=== PATIENT | female | born 2005 | race Caucasian/White ===

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

== ENCOUNTER 2024-12-25 20:52 | Emergency (ER) | payer OTHER, SELFPAY ==
[2024-12-25 20:58] VITALS: BP 155/96; PULSE 120; RESP 18; TEMP 37.6; O2SAT 97; BMI 31.9
[2024-12-25 21:24] LABS: MANUAL DIFF FLAG NO
[2024-12-25 21:26] LABS: Basophils Percent Auto 0.5 % (0-2); Eosinophils Absolute Auto 0.1 X10*3/uL (0.0-0.4); Hematocrit 38.5 % (37.0-47.0); Hemoglobin 13.6 g/dl (12.0-16.0); Imm Gran Abs Auto 0.02 X10*3/uL (0.00-0.03); Imm Gran Pct Auto 0.3 % (0.0-0.4); Lymphocytes Absolute Auto 1.5 X10*3/uL (1.2-4.9); Mean Corpuscular HGB Conc 35.3 g/dl (31.0-35.0); Mean Corpuscular Hemoglobin 31.4 pg (27.0-33.0); Mean Corpuscular Volume 88.9 fL (80.0-98.0); Mean Platelet Volume 9.1 fL (9.4-12.3); Monocytes Absolute Auto 0.3 X10*3/uL (0.1-1.2); Monocytes Percent Auto 5.3 % (2-11); Neutrophils Absolute Auto 3.9 x10*3/uL (2.0-8.3); Neutrophils Percent Auto 66.9 % (45-73); Platelet Count 223 X10*3/uL (160-400); Red Blood Count 4.33 X10*6/uL (4.20-5.50); Red Cell Distribution Width 11.2 % (11.0-16.0); White Blood Count 5.9 X10*3/uL (4.8-10.8)
[2024-12-25 21:33] LABS: Appearance Urine Clear; Color Urine Yellow; Glucose Urine UA Negative (Negative); Leukocyte Esterase Urine Negative (Negative); Nitrite Urine Negative (Negative); Specific Gravity - Urine <= 1.005 (1.005-1.025); Urine Blood Negative (Negative); Urine Ketones Negative (Negative); Urine Protein Negative (Neg-Trace)
[2024-12-25 21:37] LABS: UPreg QC Valid YES; Urine Pregnancy NEGATIVE (NEGATIVE)
[2024-12-25 21:46] LABS: Anion Gap 14 (12-20); Blood Urea Nitrogen 11 mg/dL (9-16); Calcium 10.2 mg/dL (8.4-10.2); Carbon Dioxide 25 mmol/L (22-29); Chloride 105 mmol/L (96-108); Creatinine Clr Calc Pharmacy 112.5; Estimated Glomerular Filt Rate > 60; Glucose Random 136 mg/dL (60-115); Potassium 4.1 mmol/L (3.3-5.1); Sodium 140 mmol/L (135-145)
[2024-12-25 23:44] VITALS: BP 136/92; PULSE 92; RESP 18; TEMP 36.9; O2SAT 98
--- NOTE | 2024-12-25 23:47 | PC.NURSE ---
Pt a&ox4, no signs distress. Pt denies pain at this time Pt reports she believes she suffered a panic attack, has had a similar episode Plan of care ongoing
--- NOTE | 2024-12-26 00:46 | ED.GENADULT ---
HPI - General Adult General Chief complaint: General Medical Stated complaint: left side rib pain Time Seen by Provider: 12/26/24 00:43 History of Present Illness HPI narrative: Patient is a 19-year-old female presents today with multiple complaints including having abdominal pain worse on the left side also question pain on urination also question bright red blood per rectum. Also complaining of a mild headache there is no fever no chills no focal weakness. No history of kidney stone patient is from home no chest pain or diaphoresis Related Data Previous Rx's ?Medication ?Instructions ?Recorded aripiprazole 10 mg tablet 10 mg PO DAILY 30 days #30 tabs 04/14/22 clonazepam 0.5 mg tablet 0.5 mg PO BID 30 days #60 tabs 04/14/22 Allergies Allergy/AdvReac Type Severity Reaction Status Date / Time No Known Allergies Allergy Verified 12/25/24 21:00 Review of Systems Review of Systems: Positive abdominal pain positive mild headache positive bright red blood per rectum Yes all other systems are reviewed and are negative [facility] Past Medical History Attestation statement: The following information was validated with the patient. Social History Social History Household Members: Family Household Members Other:: mother, father, sister Housing: House Do you presently have visiting nurse or other home services: No Alcohol intake: former Patient Tobacco Use Status: Former Tobacco user Smoked in Last 30 Days: No e-Cigarette/Vaping Use: Former Use Second Hand Smoke Exposure: No Use of substances other than those prescribed or required for medical reasons: No Substance Use Type: Marijuana Do you have a plan to hurt others: No Plan service: No Sexual orientation: Don't Know Physical Exam ED Vital Signs: Vital Signs - 24 hr 12/25/24 20:58 12/25/24 23:44 Temperature 99.7 F 98.4 F Pulse Rate 120 H 92 Respiratory Rate 18 18 Blood Pressure 155/96 H 136/92 H Pulse Oximetry 97 98 Oxygen Delivery Method Room Air Room Air BMI result Body Mass Index 31.9 Appearance: Alert. Oriented X3. No acute distress. Eyes: Pupils equal, round and reactive to light. ENT: Pharynx normal. Neck: Normal inspection. Neck supple. No lymph nodes noted. No crepitus CVS: Normal heart rate and rhythm. Pulses normal. Normal S1 and S2 Respiratory: No respiratory distress. Breath sounds normal. No Wheezing. No rales Abdomen: Soft and nontender. No rigidity. No distention. good BS x4 Skin: Skin warm and dry. Normal skin color. Normal skin turgor. Rectal exam was done with nurse Julissa present it showed brown stool Extremities: No lower extremity edema. Neurovascular intact to all extremities. No Lacerations. No Rash Neuro: Oriented X 3. No motor deficit. No sensory deficit. Moving all extermities. No slurred speech Medical Decision Making Medical Decision Making [facility] Narrative: Patient's abdominal pain is completely gone by the time I arrived. Her white count is normal. Her hemoglobin is 13.6 she complaining of bright red blood per rectum this is her baseline hemoglobin I did a rectal with the nurse present it showed brown stool. Patient is electrolytes unremarkable except for sugar that was slightly elevated at 130. Urine showed no evidence of infection patient's test was negative no related issue there is no blood in the urine to suggest patient has kidney stone or having hematuria. In no acute distress. Patient's abdominal pain is completely gone away repeat abdominal exam is soft nontender will discharge patient home. Differential Diagnosis Differential Diagnoses: The differential diagnosis associated with the presentation includes GI bleed, diverticulitis, kidney stone, UTI Admission/Observation Consideration of admission/observation: Escalation of care including admission/observation considered Lab Data [facility] Lab Attestation statement: I reviewed the patient's lab results. 12/25/24 21:18 12/25/24 21:18 Labs: Lab Results 12/25/24 12/25/24 Range/Units 21:17 21:18 WBC 5.9 (4.8-10.8) X10*3/uL RBC 4.33 (4.20-5.50) X10*6/uL Hgb 13.6 (12.0-16.0) g/dl Hct 38.5 (37.0-47.0) % MCV 88.9 (80.0-98.0) fL MCH 31.4 (27.0-33.0) pg MCHC 35.3 H (31.0-35.0) g/dl RDW 11.2 (11.0-16.0) % Plt Count 223 (160-400) X10*3/uL MPV 9.1 L (9.4-12.3) fL Immature Gran % (Auto) 0.3 (0.0-0.4) % Neut % (Auto) 66.9 (45-73) % Lymph % (Auto) 26.0 (20-40) % [place] % (Auto) 5.3 (2-11) % Eos % (Auto) 1.0 (0-4) % Baso % (Auto) 0.5 (0-2) % Lymph # (Auto) 1.5 (1.2-4.9) X10*3/uL [place] # (Auto) 0.3 (0.1-1.2) X10*3/uL Eos # (Auto) 0.1 (0.0-0.4) X10*3/uL Baso # (Auto) 0.0 (0.0-0.2) X10*3/uL Abs Immat Gran (auto) 0.02 (0.00-0.03) X10*3/uL Absolute Neuts (auto) 3.9 (2.0-8.3) x10*3/uL Absolute Nucleated RBC 0.000 (0.0-0.012) X10*3/uL Nucleated RBC % (auto) 0.0 (0.0-0.2) /100WBC Sodium 140 (135-145) mmol/L Potassium 4.1 (3.3-5.1) mmol/L Chloride 105 (96-108) mmol/L Carbon Dioxide 25 (22-29) mmol/L Anion Gap 14 (12-20) BUN 11 (9-16) mg/dL Creatinine 0.80 (0.5-1.4) mg/dL Estim Creat Clear Calc 112.5 Estimated GFR > 60 Random Glucose 136 H (60-115) mg/dL Calcium 10.2 (8.4-10.2) mg/dL Urine Color Yellow Urine Appearance Clear Urine pH 7.0 (5.0-9.0) Ur Specific [place] <= 1.005 (1.005-1.025) Urine Protein Negative (Neg-Trace) mg/dL Urine Glucose (UA) Negative (Negative) mg/dL Urine Ketones Negative (Negative) mg/dL Urine Blood Negative (Negative) Urine Nitrite Negative (Negative) Ur Leukocyte Esterase Negative (Negative) Urine Test NEGATIVE (NEGATIVE) Discharge Plan Discharge Clinical Impression: Abdominal pain Patient Disposition: Home, Self-Care Instructions: Abdominal Pain (ED) Prescriptions: No Action clonazepam 0.5 mg Tablet 0.5 mg PO BID 30 Days Qty: 60 0RF aripiprazole 10 mg Tablet 10 mg PO DAILY 30 Days Qty: 30 0RF Referrals: Physician,Unknown J [Primary Care Provider] - 12/28/24 Print Language: Maldivian
[2024-12-26 01:00] LABS: OBS Int Ctl Valid YES; OBS1 NEGATIVE (NEGATIVE)
[2024-12-26 01:31] VITALS: BP 136/82; PULSE 68; RESP 12; TEMP 36.8; O2SAT 97
[2024-12-26 01:32] VITALS: BP 136/82; PULSE 68; RESP 12; TEMP 36.8; O2SAT 97
== END 2024-12-26 01:32 | disposition home or self-care (01) ==
PROVIDERS: Emergency Provider Emergency Medicine Emergency Medical Services
DX: R07.81 Pleurodynia (principal); R30.0 Dysuria; R10.2 Pelvic and perineal pain; Z87.891 Personal history of nicotine dependence; Z79.899 Other long term (current) drug therapy
CPT/HCPCS: 36415; 80048; 81003; 81025; 82272; 85025; 99283; 99284

== ENCOUNTER 2025-02-06 07:43 | Inpatient (IN) | payer OTHER, SELFPAY ==
[2025-02-06 07:50] VITALS: BP 149/87; PULSE 85; RESP 18; TEMP 36.6; O2SAT 97; BMI 31.9
--- NOTE | 2025-02-06 07:59 | ED_ITS ---
HPI - General Adult General Chief complaint: General Medical Stated complaint: SOB, abd pain, insomnia Time Seen by Provider: 02/06/25 07:58 Source: patient and family (patient's mother) Mode of arrival: ambulatory Limitations: no limitations History of Present Illness ED Provider: Idalia Mcdonough PA-C HPI narrative: Patient is a 20 year old assigned female at with a history of mental health issues presenting to the emergency department today with increased stress, headache, and abdominal pain. Patient states that she has been very stressed out and is concerned she is going to be in a full crisis . Patient states that she is having abdominal pain and head pressure with difficulty sleeping. Patient denies any dizziness, lightheadedness, nausea, vomiting, fever, chills, blurry vision, double vision, loss of vision, chest pain, difficulty breathing, shortness of breath, back pain, night sweats, pain with urination, increased urinary frequency, increased urinary urgency, blood in her urine or stool, syncope or a near syncopal episode, recent trauma or falls, bowel incontinence, bladder incontinence, or any other complaints at this time. Onset (ago): day(s) Relieving factors: none Exacerbating factors: none Associated symptoms: denies other symptoms Related Data Home Medications ?Medication ?Instructions ?Recorded ?Confirmed No Known Home Meds 02/07/25 02/07/25 Allergies Allergy/AdvReac Type Severity Reaction Status Date / Time No Known Allergies Allergy Verified 02/06/25 07:55 Review of Systems 2 Constitutional: Constitutional: Reports no additional constitutional complaints, Denies chills, Denies fever(s), Reports headache(s) and Denies night sweats Eyes: Eyes: Reports no additional eye complaints, Denies blurry vision, Denies change in vision, Denies diplopia, Denies eye discharge, Denies loss of vision and Denies eye pain ENT: Denies dizziness and Reports headache(s) Cardiovascular: Cardiovascular: Reports no additional cardiovascular complaints, Denies chest pain, Denies lightheadedness, Denies Loss of Consciousness and Denies dyspnea Respiratory: Respiratory: Reports no additional respiratory complaints and Denies dyspnea Gastrointestinal: Gastrointestinal: Reports no additional gastrointestinal complaints, Reports abdominal pain, Denies melena, Denies hematochezia, Denies change in bowel habits and Denies change in stool character Genitourinary: Genitourinary: Denies hematuria, Denies urinary frequency, Denies dysuria, Denies urinary incontinence, Denies urinary hesitancy and Denies urinary urgency Musculoskeletal: Musculoskeletal: Reports no additional musculoskeletal complaints, Denies numbness and Denies tingling Neurologic: Denies dizziness, Reports headache(s), Denies loss of vision, Denies numbness and Denies tingling Psychiatric: Psychiatric: Reports abnormal sleep pattern, Denies homicidal ideation and Denies suicidal ideation Endocrine: Endocrine: Reports no additional endocrine complaints Hematologic/Lymphatic: Hematologic/Lymphatic: Reports no additional hematologic/lymphatic complaints Allergic/Immunologic: Allergic/Immunologic: Reports no additional allergic/immunologic complaints PMFSH Past Medical History Attestation statement: The following information was validated with the patient. (all information validated with the patient's mother) Source: old records reviewed, obtained from family (patient's mother provided additional history and confirmed the history provided by the patient.) and nursing notes reviewed Social History Social History Household Members: Family Household Members Other:: mother, father, sister Housing: House Do you presently have visiting nurse or other home services: No Alcohol intake: current Alcohol intake frequency: holidays/special occasions only Patient Tobacco Use Status: Former Tobacco user Smoked in Last 30 Days: No e-Cigarette/Vaping Use: Former Use Second Hand Smoke Exposure: No Substance Use Type: Marijuana Advance Directives: No Advance Directives Information Provided: Yes Do you have a plan to hurt others: No Plan Patient : No service: No Sexual orientation: Don't Know Physical Exam ED Vital Signs: Vital Signs - 24 hr 02/06/25 21:11 02/07/25 08:45 Temperature 98.1 F 97.2 F Pulse Rate 92 89 Respiratory Rate 20 16 Blood Pressure 131/72 113/66 Pulse Oximetry 98 99 Oxygen Delivery Method Room Air Room Air BMI result Body Mass Index 31.9 Const General: cooperative, no acute distress, alert and awake Nutritional Appearance: well nourished Orientation/consciousness: patient oriented x3 HENMT Head: Yes normal to inspection and Yes atraumatic Ears: hearing grossly normal bilaterally and external ears normal General nose exam: Normal external nose present, no nasal discharge noted and no epistaxis Face and sinus: Yes normal facial exam, No abrasion and No laceration Mouth: Normal oral and palatal mucosa present, no drooling and no muffled voice Eyes General: appearance normal, both eyes and all related structures Periorbital: periorbital findings normal Eyelids: Yes eyelids normal Conjunctivae: conjunctivae normal Pupils: Equal, round and reactive pupils present EOM: EOMs intact bilaterally Neck Neck: Yes normal visual inspection, Yes full ROM and Yes no lymphadenopathy Resp Effort & Inspection: normal respiratory effort and able to speak in complete sentences Neuro General: patient oriented x3, moves all extremities and CN's II-XI intact bilaterally Cranial nerves: Yes Equal, round and reactive pupils present Cognition (Neuro): normal cognition Extrem General: Yes normal to inspection, Yes full ROM and Yes capillary refill normal Psych Appearance: grossly normal Mental Status: mental status grossly normal Affect: Sad affect present Attitude: cooperative Thought process: Normal thought process present Medications Administered Discontinued Medications Generic Name Dose Route Start Last Admin Trade Name Freq PRN Reason Stop Dose Admin Acetaminophen 975 mg 02/07/25 01:16 02/07/25 01:26 Acetaminophen 325 Mg Tablet PO 02/07/25 01:17 975 mg ONCE ONE Administration Sucralfate 1 gm 02/07/25 01:33 02/07/25 01:40 Sucralfate Oral Suspension 1 Gm/10 Ml Oral.Susp PO 02/07/25 01:34 1 gm ONCE ONE Administration Medical Decision Making Medical Decision Making [facility] Narrative: Patient is a 20 year old assigned female at with a history of mental health issues presenting to the emergency department today with increased stress, headache, and abdominal pain. Patient's physical exam was as noted in the physical exam portion of this note. Patient's blood work was unremarkable. Patient's urine showed no acute process. Patient was evaluated by the CARE team who recommended the patient be an inpatient level of psychiatry bed search. I explained my physical exam findings as well as all test results to the patient. I answered all questions asked by the patient. Patient verbalized agreement and understanding with this treatment plan and remaining in the department pending either admission here to [facility] [place] psychiatric care or transfer to an appropriate facility with psychiatric inpatient level of care. Differential Diagnosis Differential Diagnoses: The differential diagnosis associated with the presentation includes Stress Depression Admission/Observation Consideration of admission/observation: Escalation of care including admission/observation considered Patient will either be admitted here at [facility] for inpatient level of psychiatric care or transferred to a facility with he appropriate psychiatric inpatient facilities. Consult Healthcare Provider Management of the patient was discussed with: Behavioral Health Provider (Spoke with the CARE team as noted in the MDM Rationale portion of this note. ) Lab Data [facility] Lab Attestation statement: I reviewed the patient's lab results. My interpretation of these results are in the MDM Rationale portion of this note. 02/06/25 08:48 02/06/25 09:37 Labs: Lab Results 02/06/25 02/06/25 02/06/25 Range/Units 08:48 08:49 09:37 WBC 6.8 (4.8-10.8) X10*3/uL RBC 4.27 (4.20-5.50) X10*6/uL Hgb 13.3 (12.0-16.0) g/dl Hct 38.7 (37.0-47.0) % MCV 90.6 (80.0-98.0) fL MCH 31.1 (27.0-33.0) pg MCHC 34.4 (31.0-35.0) g/dl RDW 11.5 (11.0-16.0) % Plt Count 164 D (160-400) X10*3/uL MPV 9.4 (9.4-12.3) fL Immature Gran % (Auto) 0.3 (0.0-0.4) % Neut % (Auto) 67.7 (45-73) % Lymph % (Auto) 24.9 (20-40) % [place] % (Auto) 6.0 (2-11) % Eos % (Auto) 0.7 (0-4) % Baso % (Auto) 0.4 (0-2) % Lymph # (Auto) 1.7 (1.2-4.9) X10*3/uL [place] # (Auto) 0.4 (0.1-1.2) X10*3/uL Eos # (Auto) 0.1 (0.0-0.4) X10*3/uL Baso # (Auto) 0.0 (0.0-0.2) X10*3/uL Abs Immat Gran (auto) 0.02 (0.00-0.03) X10*3/uL Absolute Neuts (auto) 4.6 (2.0-8.3) x10*3/uL Absolute Nucleated RBC 0.000 (0.0-0.012) X10*3/uL Nucleated RBC % (auto) 0.0 (0.0-0.2) /100WBC Sodium 142 (135-145) mmol/L Potassium 4.0 (3.3-5.1) mmol/L Chloride 106 (96-108) mmol/L Carbon Dioxide 27 (22-29) mmol/L Anion Gap 13 (12-20) BUN 9 (9-16) mg/dL Creatinine 0.67 (0.5-1.4) mg/dL Estim Creat Clear Calc 133.2 Estimated GFR > 60 Random Glucose 101 (60-115) mg/dL Calcium 10.0 (8.4-10.2) mg/dL Magnesium 1.8 (1.6-2.6) mg/dL Total Bilirubin 0.4 (0.0-1.0) mg/dL AST 21 (5-31) U/L ALT 22 (0-31) U/L Alkaline Phosphatase 98 (39-117) U/L Total Protein 8.1 H (6.5-8.0) g/dL Albumin 4.7 (3.5-5.0) g/dL Beta HCG, Quant < 2 mIU/mL Urine Color Yellow Urine Appearance Clear Urine pH 6.5 (5.0-9.0) Ur Specific [place] 1.020 (1.005-1.025) Urine Protein Negative (Neg-Trace) mg/dL Urine Glucose (UA) Negative (Negative) mg/dL Urine Ketones Negative (Negative) mg/dL Urine Blood Negative (Negative) Urine Nitrite Negative (Negative) Ur Leukocyte Esterase Negative (Negative) Urine Opiates Screen Not Detected (Not Detect) Ur Buprenorphine Scrn Not Detected (Not Detect) ng/mL Ur Oxycodone Screen Not Detected (Not Detect) ng/mL Urine Methadone Screen Not Detected (Not Detect) ng/mL Urine Fentanyl Screen Not Detected (Not Detect) Ur Barbiturates Screen Not Detected (Not Detect) Ur Phencyclidine Scrn Not Detected (Not Detect) Ur Amphetamines Screen Not Detected (Not Detect) U Benzodiazepines Scrn Not Detected (Not Detect) Urine Cocaine Screen Not Detected (Not Detect) U Marijuana (THC) Screen Not Detected (Not Detect) Influenza Type A (PCR) NEGATIVE (Negative) Influenza Type B (PCR) NEGATIVE (Negative) RSV RNA Qual (PCR) NEGATIVE (Negative) SARS-CoV-2 RNA (RT-PCR) NEGATIVE (Negative) Independent Historian Clinical information obtained from an independent historian. History obtained from or confirmed by: Parent (Patient's mother provided additional history and confirmed the history provided by the patient. ) Critical Care Time Critical Care Time Critical Care Time: Yes Total Critical Care Time: 37 Attestation: I spent 37 minutes of Critical Care Time with this patient. This does not include time spent on separately reported billable procedures. Discharge Plan Discharge Clinical Impression: Depression Patient Disposition: Admitted As Inpatient Print Language: Sami
[2025-02-06 08:54] LABS: MANUAL DIFF FLAG NO
[2025-02-06 08:59] LABS: Basophils Percent Auto 0.4 % (0-2); Eosinophils Absolute Auto 0.1 X10*3/uL (0.0-0.4); Eosinophils Percent Auto 0.7 % (0-4); Hematocrit 38.7 % (37.0-47.0); Hemoglobin 13.3 g/dl (12.0-16.0); Imm Gran Abs Auto 0.02 X10*3/uL (0.00-0.03); Imm Gran Pct Auto 0.3 % (0.0-0.4); Lymphocytes Absolute Auto 1.7 X10*3/uL (1.2-4.9); Lymphocytes Percent Auto 24.9 % (20-40); Mean Corpuscular HGB Conc 34.4 g/dl (31.0-35.0); Mean Corpuscular Hemoglobin 31.1 pg (27.0-33.0); Mean Corpuscular Volume 90.6 fL (80.0-98.0); Mean Platelet Volume 9.4 fL (9.4-12.3); Monocytes Absolute Auto 0.4 X10*3/uL (0.1-1.2); Neutrophils Absolute Auto 4.6 x10*3/uL (2.0-8.3); Neutrophils Percent Auto 67.7 % (45-73); Platelet Count 164 X10*3/uL (160-400); Red Blood Count 4.27 X10*6/uL (4.20-5.50); Red Cell Distribution Width 11.5 % (11.0-16.0); White Blood Count 6.8 X10*3/uL (4.8-10.8)
[2025-02-06 09:01] LABS: Appearance Urine Clear; Color Urine Yellow; Glucose Urine UA Negative (Negative); Leukocyte Esterase Urine Negative (Negative); Nitrite Urine Negative (Negative); PH 6.5 (5.0-9.0); Urine Blood Negative (Negative); Urine Ketones Negative (Negative); Urine Protein Negative (Neg-Trace)
[2025-02-06 09:32] LABS: Influenza A PCR NEGATIVE (Negative); Influenza B PCR NEGATIVE (Negative); Resp Syncy Virus RNA Qual PCR NEGATIVE (Negative); SARS COV2 PCR INHOUSE NEGATIVE (Negative)
[2025-02-06 10:04] LABS: Alanine Aminotransferase 22 U/L (0-31); Albumin Level 4.7 g/dL (3.5-5.0); Alkaline Phosphatase 98 U/L (39-117); Anion Gap 13 (12-20); Aspartate Amino Transferase 21 U/L (5-31); Bilirubin Total 0.4 mg/dL (0.0-1.0); Blood Urea Nitrogen 9 mg/dL (9-16); Carbon Dioxide 27 mmol/L (22-29); Chloride 106 mmol/L (96-108); Creatinine Clr Calc Pharmacy 133.2; Estimated Glomerular Filt Rate > 60; Glucose Random 101 mg/dL (60-115); Magnesium 1.8 mg/dL (1.6-2.6); Sodium 142 mmol/L (135-145); Total Protein 8.1 g/dL (6.5-8.0)
[2025-02-06 10:14] LABS: HCG Quantitative < 2 mIU/mL
[2025-02-06 10:35] LABS: Amphetamine Screen Urine Not Detected (Not Detect); Barbiturates, Urine Not Detected (Not Detect); Benzodiazepines Screen Urine Not Detected (Not Detect); Buprenorphine Scr Not Detected (Not Detect); Cannabinoid Screen Urine Not Detected (Not Detect); Cocaine Screen Urine Not Detected (Not Detect); Fentanyl, urine Not Detected (Not Detect); Methadone Screen, Urine Not Detected (Not Detect); Opiate Screen Urine Not Detected (Not Detect); Oxycodone Screen Urine Not Detected (Not Detect); Phencyclidine Screen Urine Not Detected (Not Detect)
[2025-02-06 10:46] VITALS: BP 108/65; PULSE 76; RESP 16; O2SAT 97
--- NOTE | 2025-02-06 13:04 | MHC.CARE ---
Patient evaluated by the CARE Team, disposition determined to be inpatient psychiatric treatment. ED Provider, RIAN Silverio updated.
[2025-02-06 13:22] VITALS: BP 117/78; PULSE 87; RESP 16; O2SAT 97
--- NOTE | 2025-02-06 13:40 | PC.NURSE ---
Patient is a 20 year old with a history of mental health issues presenting to the emergency department today with increased stress. History of anxiety and psychosis. Was evaluated by the care team and determined to need IPLOC. Mother at the bedside. Patient sad and crying. States does not take any medication at this time. Respirations even and non-labored. Anxiety medication offered and declined at this time. Pending IPLOC
[2025-02-06 21:11] VITALS: BP 131/72; PULSE 92; RESP 20; TEMP 36.7; O2SAT 98
[2025-02-07] MEDS: Acetaminophen 325 MG TABLET 975 MG PO (01:26)
--- NOTE | 2025-02-07 01:33 | PC.NURSE ---
Addendum entered by Roselyn Beatty 02/07/25 01:37: also offered pt food/drinks, declined at this time. Addendum entered by Roselyn Beatty 02/07/25 01:36: LUQ ABD Original Note: pt approached nurses station stated she feels not well. asked pt questions to try to understand more of sx, pt became tearful and only requested tylenol, made aware and pt medicated per nov. while medicating pt stated she's unsure if she is nauseous, feels bubbling pointing to LEILA abd. pt is calm, resting in bed in 8. made aware of sx and came to bedside to assess. states will try po liquid carafate. pt agreeable.
[2025-02-07] MEDS: Sucralfate Oral Suspension 1 GM/10 ML ORAL.SUSP PO (01:40)
--- NOTE | 2025-02-07 08:33 | PC.NURSE ---
Assumed care of patient at 0645, patient appears to be in no apparent distress, sitting on couch watching TV in bh 8, offering no complaints to this RN. Continue plan of care for IPLOC
[2025-02-07 08:45] VITALS: BP 113/66; PULSE 89; RESP 16; TEMP 36.2; O2SAT 99
--- NOTE | 2025-02-07 10:03 | PHA.MEDREC ---
Addendum entered by Shelton Castillo PharmD 02/07/25 10:06: reviewed Original Note: Pharmacy Consult ? Medication Reconciliation Pharmacy has reviewed the medication reconciliation done by nursing.
--- NOTE | 2025-02-07 15:26 | PC.ADMIT ---
Addendum entered by Bia Alan RN 02/07/25 15:59: PER ED BELONGINGS LIST: ALL BELONGINGS SENT HOME WITH MOM. PT CAME TO UNIT IN [facility], NO BELONGINGS. Original Note: Pt admitted at 1355 from [facility] ED. Pt initially presented to [facility] ED with vague somatic complaints- headache and abdominal pains. Pt was not able to provide much info to Care team or t/w, much of the info comes from pt's parents. Per crisis report pt has been presently frequently to [facility] EDs with somatic complaints. Pt has worked the same job for several years and quit last month for no clear reason. Pt has been paranoid and not sleeping well. Pt denies this part of assessment. Pt asked that parents give away the family dogs as she no longer felt safe with them at home (mom says these are well behaved, long time residents of the home, not new pets). Pt presented with significant thought blocking and did appear to be responding to internal stimuli on the ride up from the ED. Pt unable to verbalize to t/w what brought her to the ED, whether physical or verbal and just shrugged as a result of questions. Per crisis report pt did give to a stillborn child in July 2023. Pt reported the baby was 4months old, mom reported 7 months old. This was not discussed with pt during admission. Pt declines to sign any paperwork other than a CV and TAMARA for parents. Pt declined to participate in safety tool. Skin check unremarkable.
[2025-02-07 19:53] VITALS: BP 124/75; PULSE 85; RESP 16; TEMP 37; O2SAT 97
[2025-02-08 07:00] VITALS: BMI 32.0
[2025-02-08 08:00] VITALS: BP 114/56; PULSE 80; RESP 16; TEMP 36.9
[2025-02-08 08:38] LABS: Estimated Average Glucose 100 mg/dL; Hemoglobin A1C 108.2127 umol/L; Hemoglobin A1c % 5.1 % (<6.0); Total Hemoglobin (HGBA1C) 3360.5399 umol/L
[2025-02-08 08:53] LABS: Alanine Aminotransferase 16 U/L (0-31); Albumin Level 4.7 g/dL (3.5-5.0); Alkaline Phosphatase 93 U/L (39-117); Anion Gap 11 (12-20); Aspartate Amino Transferase 18 U/L (5-31); Bilirubin Total 0.5 mg/dL (0.0-1.0); Blood Urea Nitrogen 16 mg/dL (9-16); Calcium 10.1 mg/dL (8.4-10.2); Carbon Dioxide 29 mmol/L (22-29); Chloride 103 mmol/L (96-108); Cholesterol 202 mg/dL (<200); Creatinine Clr Calc Pharmacy 115.9; Estimated Glomerular Filt Rate > 60; Glucose Random 95 mg/dL (60-115); HDL Cholesterol 50 mg/dL (>40); LDL Cholesterol Calculated 118 mg/dL (<100); Potassium 3.9 mmol/L (3.3-5.1); Sodium 139 mmol/L (135-145); Triglycerides 172 mg/dL (<150)
[2025-02-08 09:02] LABS: TSH reflex Free T4 1.38 uIU/mL (0.32-4.0)
--- NOTE | 2025-02-08 09:56 | HO.PSYADMNOT ---
HPI Date of Service: 02/08/25 Chief Complaint: Severe anxiety/SI Sources of Information: patient interviewed, chart reviewed and crisis/core team assessment reviewed HPI Subjective Notes: Mathew Warning, Conditional Voluntary and 3 Day Narrative: pt seen on 02/07/25 Patient is a 20-year-old female history of anxiety and depression, 1 past psychiatric admission at [facility] in 2021, who presents for odd behaviors at home. Patient is quite reticent on meeting. She says she was brought to the hospital since there was pain in my body...kind of like constipation... pain is gone now. Patient says some odd things that are incongruent with questions such as i like to go outside and play... She acknowledges that she is having a lot of anxiety. Patient used to work at [employer] for 2 years, family saying she abruptly quit. On inquiry she says she stopped since it didn't feel normal...the environment...i would see the same people every day...i'd wake up and feel i didn't want to go to work...i don't hate people so it' was unusual that i wouldn't want to go to work...I was having panic attacks...I was scared to get sick, like a disease or an infection..or not be able to perfom my job... Her mother reported that she asked to have the family dogs given away. 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 Patient says she's confused about it...She endorses anxiety and depression but patient can't seem to articulate details. She denies hearing voices but intermittently will hear 1 type of auditory hallucination and says she hears a popping sounds that pops once..., when i feel like i'm going to start crying.. Patient agrees that over the past several months something has changed. On deeper inquiry, patient acknowledges that in 2022 she was and had a stillborn child. Since then she feels that something has changed and life has been more difficult. She also reports having nightmares frequently however denies any other trauma. Patient mentions that she does not have a doctor and that she has had vaginal pain which she would like addressed. Patient denies any manic type symptoms or behaviors. Denies any SI; no drug or alcohol use Family provided collateral and reports: vague somatic complaints- headache and abdominal pains. presently frequently to area EDs with somatic complaints. Pt has worked the same job for several years and quit last month for no clear reason. Pt has been paranoid and not sleeping well. Pt asked that parents give away the family dogs as she no longer felt safe with them at home . Past Psychiatric History: Psych admission 2021 at [facility] History of SI expressed at last admission; no h/o SA. trial of Abilify Medical Evaluation Reviewed: Yes [facility] Family History: father has mental health history, not defined Social History: born in [place], lives in [place] [facility]. graduate of [employer] and looking into college options. Substance History: None Trauma History: Had a stillborn child; partner was a friend Diagnostics Vital Signs (24Hr): Vital Signs - 24 hr 02/07/25 19:53 Temperature 98.6 F Pulse Rate 85 Respiratory Rate 16 Blood Pressure 124/75 Pulse Oximetry 97 Oxygen Delivery Method Room Air BMI result Body Mass Index 31.9 Labs 02/06/25 08:48 02/08/25 08:16 Labs: Laboratory Results - last 48 hr 02/06/25 02/06/25 02/08/25 08:49 09:37 08:16 Sodium 142 139 Potassium 4.0 3.9 Chloride 106 103 Carbon Dioxide 27 29 Anion Gap 13 11 L BUN 9 16 Creatinine 0.67 0.77 Estim Creat Clear Calc 133.2 115.9 Estimated GFR > 60 > 60 Random Glucose 101 95 Estimat Average Glucose 100 Hemoglobin A1c % 5.1 Calcium 10.0 10.1 Magnesium 1.8 Total Bilirubin 0.4 0.5 AST 21 18 ALT 22 16 Alkaline Phosphatase 98 93 Total Protein 8.1 H 8.0 Albumin 4.7 4.7 Triglycerides 172 H Cholesterol 202 H LDL Cholesterol, Calc 118 H HDL Cholesterol 50 TSH 1.38 Beta HCG, Quant < 2 Urine Opiates Screen Not Detected Ur Buprenorphine Scrn Not Detected Ur Oxycodone Screen Not Detected Urine Methadone Screen Not Detected Urine Fentanyl Screen Not Detected Ur Barbiturates Screen Not Detected Ur Phencyclidine Scrn Not Detected Ur Amphetamines Screen Not Detected U Benzodiazepines Scrn Not Detected Urine Cocaine Screen Not Detected U Marijuana (THC) Screen Not Detected Meds/Allergies Meds Home Medications ?Medication ?Instructions ?Recorded ?Confirmed ?Type No Known Home Meds 02/07/25 02/07/25 History Allergies Allergies Allergy/AdvReac Type Severity Reaction Status Date / Time No Known Allergies Allergy Verified 02/06/25 07:55 Mental Status Exam Mental Status Exam Narrative: Pt is alert and oriented; behavior is quiet, guarded, reticent; dressed in casual attire with unkempt hair but adequate hygiene; mood is described as anxious and affect congruent; eye contact appropriate; Speech quiet, latent; psychomotor retardation present; thought process is distracted; Thought content is on somatic complaints; unclear if patient has delusional thoughts; denies any SI/HI. Denies AVH however seems internally preoccupied. Patients insight and judgment impaired Assessment & Plan Assessment & Plan (1) Anxiety: Status: Resolved Code(s): F41.9 - Anxiety disorder, unspecified Plan Patient is a 20-year-old female with no known psych history who presents for odd behaviors at home. Patient is quite reticent on meeting. She says she was brought to the hospital since there was pain in my body...kind of like constipation... pain is gone now. Patient says some odd things that are incongruent with questions such as i like to go outside and play... She acknowledges that she is having a lot of anxiety. Patient used to work at [employer] for 2 years, family saying she abruptly quit. On inquiry she says she stopped since it didn't feel normal...the environment...i would see the same people every day...i'd wake up and feel i didn't want to go to work...i don't hate people so it' was unusual that i wouldn't want to go to work...I was having panic attacks...I was scared to get sick, like a disease or an infection..or not be able to perfom my job... Her mother reported that she asked to have the family dogs given away. 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 Patient says she's confused about it...She endorses anxiety and depression but patient can't seem to articulate details. She denies hearing voices but intermittently will hear 1 type of auditory hallucination and says she hears a popping sounds that pops once..., when i feel like i'm going to start crying.. Patient agrees that over the past several months something has changed. On deeper inquiry, patient acknowledges that in 2022 she was and had a stillborn child. Since then she feels that something has changed and life has been more difficult. She also reports having nightmares frequently however denies any other trauma. Patient mentions that she does not have a doctor and that she has had vaginal pain which she would like addressed. Patient denies any manic type symptoms or behaviors. Denies any SI at all, past or present; no drug or alcohol use Family provided collateral and reports: vague somatic complaints- headache and abdominal pains;' presently frequently to area EDs with somatic complaints. Pt has worked the same job for several years and quit last month for no clear reason. Pt has been paranoid and not sleeping well.Pt asked that parents give away the family dogs as she no longer felt safe with them at home Formulation/clinical reasoning: Difficult to tell if patient's symptoms are due to just anxiety or also psychosis. Will continue to monitor. For now will start on Ativan Plan: CV Q 15 minute checks Start Ativan 1 mg t.i.d. Patient educated on: diagnosis, medication risk/benefits and therapeutic strategies Informed Consent: understands, does not understand and further education needed Reason for continued inpatient stay Substantial Risk for: rapid decompensation Statement Statement: I have reviewed the history and physical and performed a pertinent examination on my patient. No changes have occurred unless specified. If the History and Physical was not performed prior to admission, the Hospitalist's service will be consulted for completing the admission physical. Time Spent With Patient Time: Total time managing care of this patient today ____ minutes.
[2025-02-08] MEDS: LORazepam 1 MG TABLET PO ×2 (14:42→21:41)
[2025-02-08 20:00] VITALS: BP 123/64; PULSE 89; RESP 18; TEMP 36.8; O2SAT 96
[2025-02-08] MEDS: Acetaminophen 325 MG TABLET 650 MG PO (21:43)
[2025-02-09 09:02] VITALS: BP 114/62; PULSE 85; RESP 16; TEMP 36.2; O2SAT 96
[2025-02-09] MEDS: LORazepam 1 MG TABLET PO ×2 (09:38→15:54)
--- NOTE | 2025-02-09 09:48 | P.PNPSI_ITS ---
Subjective Subjective Date of Service: 02/09/25 Reason For Visit: Severe anxiety/SI Interim History: Met with patient; discussed with team Patient seems to be doing much better. Much more engaged and talking spontaneously; also much more organized in both speech and behavior. Patient says she is slept well and no nightmares. She says she does feel more relaxed. Mental Status Exam Mental Status Exam Narrative: Pt is alert and oriented; behavior is quiet, guarded, reticent; dressed in casual attire with unkempt hair but adequate hygiene; mood is described as anxious and affect congruent; eye contact appropriate; Speech quiet, latent; psychomotor retardation present; thought process is distracted; Thought content is on somatic complaints; unclear if patient has delusional thoughts; denies any SI/HI. Denies AVH however seems internally preoccupied. Patients insight and judgment impaired Diagnostics Vital Signs (24Hr): Vital Signs - 24 hr 02/08/25 20:00 02/09/25 09:02 Temperature 98.2 F 97.2 F Pulse Rate 89 85 Respiratory Rate 18 16 Blood Pressure 123/64 114/62 Pulse Oximetry 96 96 Oxygen Delivery Method Room Air Room Air BMI result Body Mass Index 32.0 Labs 02/06/25 08:48 02/08/25 08:16 Labs: Laboratory Results - last 48 hr 02/08/25 08:16 Sodium 139 Potassium 3.9 Chloride 103 Carbon Dioxide 29 Anion Gap 11 L BUN 16 Creatinine 0.77 Estim Creat Clear Calc 115.9 Estimated GFR > 60 Random Glucose 95 Estimat Average Glucose 100 Hemoglobin A1c % 5.1 Calcium 10.1 Total Bilirubin 0.5 AST 18 ALT 16 Alkaline Phosphatase 93 Total Protein 8.0 Albumin 4.7 Triglycerides 172 H Cholesterol 202 H LDL Cholesterol, Calc 118 H HDL Cholesterol 50 TSH 1.38 Medications Medications Current Medications Acetaminophen (Acetaminophen 325 Mg Tablet) 650 mg PO Q6H PRN PRN Reason: Headache/Pain, Scale 1-10 Last Admin: 02/08/25 21:43 Dose: 650 mg Al Hydroxide/Mg Hydroxide (Magnesium Hydrox/Alum Hydrox 30 Ml Oral.Susp) 30 ml PO Q6H PRN PRN Reason: Heartburn/Nausea Hydroxyzine HCl (Hydroxyzine Hcl 25 Mg Tablet) 25 mg PO Q6H PRN PRN Reason: mild anxiety Lorazepam (Lorazepam 1 Mg Tablet) 1 mg PO TID [facility] Last Admin: 02/09/25 09:38 Dose: 1 mg Magnesium Hydroxide (Milk Of Magnesia 30 Ml Oral.Susp) 30 ml PO DAILY PRN PRN Reason: Constipation Nicotine (Nicotine 21 Mg Patch.Td24) 21 mg TRANSDERMA DAILY PRN PRN Reason: smoking cessation Nicotine Polacrilex (Nicotine Polacrilex 2 Mg Gum) 4 mg BUCCAL Q2H PRN PRN Reason: Nicotine Cravings Olanzapine (Olanzapine 5 Mg Tablet) 5 mg PO TID PRN PRN Reason: agitation Trazodone HCl (Trazodone Hcl 50 Mg Tablet) 50 mg PO BEDTIME MRX1 PRN PRN Reason: Insomnia Allergies Allergies Allergy/AdvReac Type Severity Reaction Status Date / Time No Known Allergies Allergy Verified 02/06/25 07:55 Assessment & Plan Assessment & Plan (1) Anxiety: Status: Resolved Code(s): F41.9 - Anxiety disorder, unspecified Plan Patient is a 20-year-old female with no known psych history who presents for odd behaviors at home. Patient is quite reticent on meeting. She says she was brought to the hospital since there was pain in my body...kind of like constipation... pain is gone now. Patient says some odd things that are incongruent with questions such as i like to go outside and play... She acknowledges that she is having a lot of anxiety. Patient used to work at [employer] for 2 years, family saying she abruptly quit. On inquiry she says she stopped since it didn't feel normal...the environment...i would see the same people every day...i'd wake up and feel i didn't want to go to work...i don't hate people so it' was unusual that i wouldn't want to go to work...I was having panic attacks...I was scared to get sick, like a disease or an infection..or not be able to perfom my job... Her mother reported that she asked to have the family dogs given away. 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 Patient says she's confused about it...She endorses anxiety and depression but patient can't seem to articulate details. She denies hearing voices but intermittently will hear 1 type of auditory hallucination and says she hears a popping sounds that pops once..., when i feel like i'm going to start crying.. Patient agrees that over the past several months something has changed. On deeper inquiry, patient acknowledges that in 2022 she was and had a stillborn child. Since then she feels that something has changed and life has been more difficult. She also reports having nightmares frequently however denies any other trauma. Patient mentions that she does not have a doctor and that she has had vaginal pain which she would like addressed. Patient denies any manic type symptoms or behaviors. Denies any SI at all, past or present; no drug or alcohol use Family provided collateral and reports: vague somatic complaints- headache and abdominal pains;' presently frequently to area EDs with somatic complaints. Pt has worked the same job for several years and quit last month for no clear reason. Pt has been paranoid and not sleeping well.Pt asked that parents give away the family dogs as she no longer felt safe with them at home Formulation/clinical reasoning: Difficult to tell if patient's symptoms are due to just anxiety or also psychosis. Will continue to monitor. For now will start on Ativan -patient was started on Abilify last admission Hospital course: 02/09 patient doing much better, Ativan having seem to loosen her up. Now she is organized in speech and behavior and talking more spontaneously. At this point she does not seem to have psychotic symptoms though at last admission she was started on Abilify. Will try her on a course of an SSRI, venlafaxine (reviewed risks/side effects with patient) to address what seems to be severe anxiety and possibly OCD (and perhaps PTSD from of stillborn child). -no somatic complaints -no psychotic symptoms -at this point will just treat for anxiety/depression Plan: CV Q 15 minute checks Will switch to clonazepam 0.5 mg b.i.d. Will start venlafaxine Patient educated on: diagnosis, medication risk/benefits and therapeutic strategies Informed Consent: understands and further education needed Reason for continued inpatient stay Substantial Risk for: rapid decompensation Time Spent With Patient Time: Total time managing care of this patient today ____ minutes.
[2025-02-09 19:57] VITALS: BP 128/68; PULSE 81; RESP 16; TEMP 37.3; O2SAT 97
[2025-02-09] MEDS: cloNIDine HCL 0.1 MG TABLET PO (20:24)
[2025-02-10 08:15] VITALS: BP 107/72; PULSE 83; TEMP 36.4; O2SAT 98
[2025-02-10] MEDS: clonazePAM 0.5 MG TABLET PO ×2 (09:17→13:46)
[2025-02-10] MEDS: Venlafaxine HCl ER 37.5 MG CAP.ER.24H PO (09:18)
--- NOTE | 2025-02-10 11:57 | HO.PSYCHPN ---
Subjective Subjective Date of Service: 02/10/25 Reason For Visit: Severe anxiety/SI Mental Status Exam Mental Status Exam Narrative: Pt alert anxious preoccupied guarded Diagnostics Vital Signs (24Hr): Vital Signs - 24 hr 02/09/25 19:57 02/10/25 08:15 Temperature 99.1 F 97.6 F Pulse Rate 81 83 Respiratory Rate 16 Blood Pressure 128/68 107/72 Pulse Oximetry 97 98 Oxygen Delivery Method Room Air Room Air BMI result Body Mass Index 32.0 Labs 02/06/25 08:48 02/08/25 08:16 Medications Medications Current Medications Acetaminophen (Acetaminophen 325 Mg Tablet) 650 mg PO Q6H PRN PRN Reason: Headache/Pain, Scale 1-10 Last Admin: 02/08/25 21:43 Dose: 650 mg Al Hydroxide/Mg Hydroxide (Magnesium Hydrox/Alum Hydrox 30 Ml Oral.Susp) 30 ml PO Q6H PRN PRN Reason: Heartburn/Nausea Clonazepam (Clonazepam 0.5 Mg Tablet) 0.5 mg PO BID@0900,1300 [facility] Last Admin: 02/10/25 09:17 Dose: 0.5 mg Clonidine HCl (Clonidine Hcl 0.1 Mg Tablet) 0.1 mg PO BEDTIME MAKAYLA; Protocol Last Admin: 02/09/25 20:24 Dose: 0.1 mg Hydroxyzine HCl (Hydroxyzine Hcl 25 Mg Tablet) 25 mg PO Q6H PRN PRN Reason: mild anxiety Magnesium Hydroxide (Milk Of Magnesia 30 Ml Oral.Susp) 30 ml PO DAILY PRN PRN Reason: Constipation Nicotine (Nicotine 21 Mg Patch.Td24) 21 mg TRANSDERMA DAILY PRN PRN Reason: smoking cessation Nicotine Polacrilex (Nicotine Polacrilex 2 Mg Gum) 4 mg BUCCAL Q2H PRN PRN Reason: Nicotine Cravings Olanzapine (Olanzapine 5 Mg Tablet) 5 mg PO TID PRN PRN Reason: agitation Trazodone HCl (Trazodone Hcl 50 Mg Tablet) 50 mg PO BEDTIME MRX1 PRN PRN Reason: Insomnia Venlafaxine HCl (Venlafaxine Hcl Er 37.5 Mg Cap.Er.24h) 37.5 mg PO DAILY MAKAYLA Last Admin: 02/10/25 09:18 Dose: 37.5 mg Allergies Allergies Allergy/AdvReac Type Severity Reaction Status Date / Time No Known Allergies Allergy Verified 02/06/25 07:55 Assessment & Plan Assessment & Plan (1) Anxiety: Status: Resolved Code(s): F41.9 - Anxiety disorder, unspecified Plan Patient is a 20-year-old female with no known psych history who presents for odd behaviors at home. Patient is quite reticent on meeting. She says she was brought to the hospital since there was pain in my body...kind of like constipation... pain is gone now. Patient says some odd things that are incongruent with questions such as i like to go outside and play... She acknowledges that she is having a lot of anxiety. Patient used to work at [employer] for 2 years, family saying she abruptly quit. On inquiry she says she stopped since it didn't feel normal...the environment...i would see the same people every day...i'd wake up and feel i didn't want to go to work...i don't hate people so it' was unusual that i wouldn't want to go to work...I was having panic attacks...I was scared to get sick, like a disease or an infection..or not be able to perfom my job... Her mother reported that she asked to have the family dogs given away. 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 Patient says she's confused about it...She endorses anxiety and depression but patient can't seem to articulate details. She denies hearing voices but intermittently will hear 1 type of auditory hallucination and says she hears a popping sounds that pops once..., when i feel like i'm going to start crying.. Patient agrees that over the past several months something has changed. On deeper inquiry, patient acknowledges that in 2022 she was and had a stillborn child. Since then she feels that something has changed and life has been more difficult. She also reports having nightmares frequently however denies any other trauma. Patient mentions that she does not have a doctor and that she has had vaginal pain which she would like addressed. Patient denies any manic type symptoms or behaviors. Denies any SI at all, past or present; no drug or alcohol use Family provided collateral and reports: vague somatic complaints- headache and abdominal pains;' presently frequently to area EDs with somatic complaints. Pt has worked the same job for several years and quit last month for no clear reason. Pt has been paranoid and not sleeping well.Pt asked that parents give away the family dogs as she no longer felt safe with them at home Formulation/clinical reasoning: Difficult to tell if patient's symptoms are due to just anxiety or also psychosis. Will continue to monitor. For now will start on Ativan -patient was started on Abilify last admission Hospital course: 02/09 patient doing much better, Ativan having seem to loosen her up. Now she is organized in speech and behavior and talking more spontaneously. At this point she does not seem to have psychotic symptoms though at last admission she was started on Abilify. Will try her on a course of an SSRI, venlafaxine (reviewed risks/side effects with patient) to address what seems to be severe anxiety and possibly OCD (and perhaps PTSD from of stillborn child). -no somatic complaints -no psychotic symptoms -at this point will just treat for anxiety/depression Plan: CV Q 15 minute checks Will switch to clonazepam 0.5 mg b.i.d. Will start venlafaxine 02/10/2025 Continue plan of care improvement noted Reason for continued inpatient stay Substantial Risk for: inability to function and rapid decompensation Time Spent With Patient Time: Total time managing care of this patient today ____ minutes.
[2025-02-10 20:00] VITALS: BP 133/77; PULSE 73; TEMP 37.2; O2SAT 98
[2025-02-10] MEDS: cloNIDine HCL 0.1 MG TABLET PO (21:28)
[2025-02-11 08:15] VITALS: BP 112/55; PULSE 64; TEMP 36.5; O2SAT 98
[2025-02-11] MEDS: clonazePAM 0.5 MG TABLET PO ×2 (08:40→14:04)
[2025-02-11] MEDS: Venlafaxine HCl ER 37.5 MG CAP.ER.24H PO (08:40)
[2025-02-11 20:00] VITALS: BP 140/70; PULSE 72; RESP 16; TEMP 36.3; O2SAT 98
[2025-02-11 21:33] VITALS: BP 118/73
[2025-02-11] MEDS: cloNIDine HCL 0.1 MG TABLET PO (21:33)
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
[2025-02-12 07:58] VITALS: BP 102/57; PULSE 63; TEMP 37.1; O2SAT 98
[2025-02-12 08:37] LABS: Syphilis Screen Nonreactive (Nonreactive)
[2025-02-12 08:39] LABS: ~HepC Num1 0.13 S/CO (0.00-0.79); ~Hepatitis C Antibody Nonreactive (Nonreactive)
[2025-02-12 08:40] LABS: HBS Num1 0.82 mIU/mL (0-7.99); HBc Num1 0.08 S/CO (0.00-0.79); HBsAGNum1 0.37 S/CO (0.00-0.99); HIV AB/AG Nonreactive (Nonreactive); HIV Num 1 0.08 S/CO (0.00-0.99); Hepatitis B Core Antibody Nonreactive (Nonreactive); Hepatitis B Surface Antigen Negative (Negative); ~Hepatitis B Surface Antibody NONREACTIVE (Nonreactive)
[2025-02-12] MEDS: clonazePAM 0.5 MG TABLET PO ×2 (09:03→13:18)
[2025-02-12] MEDS: Venlafaxine HCl ER 75 MG CAP.ER.24H PO (09:07)
[2025-02-12] MEDS: risperiDONE 0.25 MG TABLET PO ×2 (09:07→22:26)
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
[2025-02-12 20:00] VITALS: BP 133/63; PULSE 78; RESP 16; TEMP 37; O2SAT 97
[2025-02-12 22:26] VITALS: BP 133/86
[2025-02-12] MEDS: cloNIDine HCL 0.1 MG TABLET PO (22:26)
[2025-02-13 07:57] VITALS: BP 118/65; PULSE 75; TEMP 37; O2SAT 98
[2025-02-13 14:49] LABS: Herpes Simplex Type 2 IgG <0.90 index
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
[2025-02-13] MEDS: Venlafaxine HCl ER 37.5 MG CAP.ER.24H PO (16:55)
[2025-02-13 19:59] VITALS: BP 135/78; PULSE 80; RESP 16; TEMP 36.9; O2SAT 98
[2025-02-13] MEDS: risperiDONE 1 MG TABLET PO (21:04)
[2025-02-13] MEDS: Milk of Magnesia 30 ML ORAL.SUSP PO (21:10)
[2025-02-14 08:30] VITALS: BP 108/56; PULSE 89; RESP 16; TEMP 37.2; O2SAT 98
[2025-02-14] MEDS: Venlafaxine HCl ER 75 MG CAP.ER.24H PO (08:56)
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
[2025-02-16 18:02] LABS: Chlamydia Pneumoniae IgA <1:16 titer (<1:16); Chlamydia Pneumoniae IgG <1:64 titer (<1:64); Chlamydia Pneumoniae IgM <1:10 titer (<1:10); Chlamydia Psittaci IgA <1:16 titer (<1:16); Chlamydia Psittaci IgG <1:64 titer (<1:64); Chlamydia Psittaci IgM <1:10 titer (<1:10); Chlamydia Trachomatis IgA <1:16 titer (<1:16); Chlamydia Trachomatis IgG <1:64 titer (<1:64); Chlamydia Trachomatis IgM <1:10 titer (<1:10)
== END 2025-02-14 11:30 | disposition home or self-care (01) | DRG 880 ==
LOC: HO.ED 02-07 12:58 → HO.PM5 02-07 13:30
PROVIDERS: Physician Assistant Medical; Psychiatry & Neurology Psychiatry; Admitting Provider Psychiatry & Neurology Psychiatry; Emergency Provider Emergency Medicine Emergency Medical Services; Visit Provider Psychiatry & Neurology Psychiatry
DX: F41.1 Generalized anxiety disorder (principal); R45.851 Suicidal ideations; F43.10 Post-traumatic stress disorder, unspecified; F42.9 Obsessive-compulsive disorder, unspecified; Z20.822 Contact with and (suspected) exposure to COVID-19; Z87.891 Personal history of nicotine dependence; Z79.899 Other long term (current) drug therapy
CPT/HCPCS: 0241U; 36415; 80053; 80061; 80307; 81003; 83036; 83735; 84443; 84702; 85025; 86631; 86632; 86695; 86696; 86704; 86706; 86780; 86803; 87340; 87389; 99285; S9485

== ENCOUNTER → 2025-02-07 13:29 | Outpatient (BNV) | payer OTHER, SELFPAY | PROVIDERS: Admitting Provider Psychiatry & Neurology Psychiatry; Emergency Provider Emergency Medicine Emergency Medical Services; Visit Provider Psychiatry & Neurology Psychiatry | DX: F41.9 Anxiety disorder, unspecified (principal) | CPT/HCPCS: 99231 ==

== ENCOUNTER → 2025-02-07 13:29 | Outpatient (BNV) | payer OTHER, SELFPAY | PROVIDERS: Admitting Provider Psychiatry & Neurology Psychiatry; Emergency Provider Emergency Medicine Emergency Medical Services; Visit Provider Psychiatry & Neurology Psychiatry | DX: F32.2 Major depressive disorder, single episode, severe without psychotic features (principal); F43.11 Post-traumatic stress disorder, acute; R41.89 Other symptoms and signs involving cognitive functions and awareness; F41.9 Anxiety disorder, unspecified | CPT/HCPCS: 90792; 99231; 99232 ==

== ENCOUNTER 2025-05-30 11:10 | Outpatient (AMB) | payer OTHER, SELFPAY ==
--- NOTE | 2025-05-30 11:18 | MHC.PC.OV ---
Vital Signs 05/30/25 11:19 Height 5 ft 2.6 in Weight 197 lb BMI 35.3 BP 122/80 Blood Pressure Location Lt brachial Position Sitting Pulse 88 Pulse Source Pulse Oximeter Temp 97.3 F Temp Source Temporal Artery Scan Pulse Oximetry (%) 97 Oxygen Delivery Method Room Air Intake Visit Reasons: establish care Intake Note: Patient is a new patient here to establish care for Wellness visit. Transferring care from Dr Encarnacion ([facility]). Medical records have been requested and have not received. 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 Level Accounting Clerk: Not Required per policy Accompanied by: Self / Same As Patient Allergies No Known Allergies Allergy (Verified 05/30/25 11:30) Medication List - Last Reconciled 05/30/25 by Federica Morfin PA-C risperidone 0.5 mg PO BEDTIME 30 days venlafaxine ER 75 mg PO DAILY 30 days Tobacco use date assessed: 05/30/25 Dental Screening Dental Screen Date: 05/30/25 Did you have a dental visit in the last 12 months?: No Did you have a dental problem in the last 6 months where you did not have access to dental care?: No Was dental information given to patient?: Patient has dentist HPI establish care HPI Details 20-year-old female coming to the office for the 1st time. Presenting with anxiety, depression, and associated symptoms such as headaches and dyspnea. Anxiety and depression are managed with Risperdal and venlafaxine, with regular psychiatric follow-ups every four weeks. Recent headaches have been persistent, lasting about a week, with congestion and emotional distress. Not currently having a headache and no consistent history of migraines or headaches. Dyspnea occurs during physical activity and occasionally coughing in the night. Significant weight gain is noted, attributed to medication side effects and poor dietary habits. Sleep disturbances include difficulty falling asleep, though the patient does not wake up during the night. Muscle weakness and joint pain raise concerns for autoimmune disorders and Lyme disease, with blood work planned for evaluation. [facility] Medical History Psychosis Surgical History No pertinent past surgical history Social History Household Members: Family Household Members Other:: mother, father, sister Housing: House Do you presently have visiting nurse or other home services: No Alcohol intake: current Alcohol intake frequency: holidays/special occasions only Patient Tobacco Use Status: Never used Tobacco e-Cigarette/Vaping Use: Former Use Second Hand Smoke Exposure: No service: No Current occupational status: unemployed Sexual orientation: Straight/Heterosexual Cognitive needs: No Hearing needs: No Vision needs: No Female Reproductive History Menstrual control method: none Total pregnancies: 1 Premature: 1 History of abnormal pap smear: No Questionnaire PHQ-9 Over the last 2 weeks, how often have you been bothered by any of the following problems? 1. Little interest or pleasure in doing things: nearly every day 2. Feeling down, depressed, or hopeless: nearly every day 3. Trouble falling or staying asleep, or sleeping too much: nearly every day 4. Feeling tired or having little energy: nearly every day 5. Poor appetite or overeating: nearly every day 6. Feeling bad about yourself - or that you are a failure or have let yourself or your family down: nearly every day 7. Trouble concentrating on things, such as reading the newspaper or watching television: nearly every day 8. Moving or speaking so slowly that other people could have noticed. Or the opposite - being so fidgety or restless that you have been moving around a lot more than usual: nearly every day 9. Thoughts that you would be better off or of hurting yourself in some way: nearly every day Total score: 27 Depression Screening Interpretation: Positive (RVCC) Depression Screening Follow-up: Existing condition and In treatment Depression Screening Done: Yes Source: Developed by Drs. Brad Ghotra, Anju Briceño, Bj Fontana and colleagues, with an educational andrzej from [employer]. Thrive Questionnaire Date Thrive assessed: 02/08/25 I am a: Patient What is your living situation today?: I have a steady place to live Within the past 12 months, did the food you bought not last and you didn't have the money to get more?: Never true Within the past 12 months, did you worry whether your food would run out before you got money to buy more?: I choose not to answer this question Do you have trouble paying for medicines?: No Do you have trouble getting transportation to medical appointments?: No Do you have trouble paying your heating and electricity bill?: No Do you have trouble taking care of your child, family member or friend?: No Do you have trouble with day-to-day activities such as bathing, preparing meals, shopping, managing finances, etc.?: Yes Are you currently unemployed and looking for a job?: Yes Are you interested in more education?: Yes Please select the resources that you would like help with: Housing/[facility], Job search/training and Education Currently or been in a relationship where the following occur: I choose not to answer THRIVE Score: 0 AUDIT C Alcohol Use Questionnaire (AUDIT-C) 1. How often do you have a drink containing alcohol?: Never Total Score: 0 SYDNIE-7 AMB Questionnaire SYDNIE-7 Date SYDNIE - 7 assessed: 05/30/25 Feeling nervous, anxious, or on edge: 0 = Not at all Not being able to stop or control worryin = More than half the days Worrying too much about different things: 2 = More than half the days Trouble relaxin = Nearly every day Being so restless that it is hard to sit still: 3 = Nearly every day Becoming easily annoyed or irritable: 3 = Nearly every day Feeling afraid as if something awful might happen: 3 = Nearly every day Total SYDNIE-7 score (0-4 normal; 5-9 mild; 10-14 moderate; 15-21 severe): 16 Source: Developed by Drs. Brad Ghotra, Anju Briceño, Bj Fontana and colleagues, with an educational andrzej from [employer]. SYDNIE-7 Assessment Billing SYDNIE-7 Assessment Tool: SYDNIE-7 Assessment 81014 Review of Systems Const Denies body aches, Denies chills, Denies fever(s), Reports headache(s) and Denies poor appetite Eyes Reports no additional complaints ENT Denies dysphagia, Denies dizziness, Reports headache(s) and Denies odynophagia Card Denies chest pain, Denies syncope, Denies edema, Denies irregular heart rhythm, Denies lightheadedness, Denies dyspnea and Reports dyspnea on exertion Resp Denies cough, Denies dyspnea and Reports dyspnea on exertion GI Denies abdominal pain, Denies dysphagia, Denies nausea, Denies odynophagia and Denies vomiting Reports no additional complaints Musc Reports no additional complaints and Denies abnormal gait Skin/Breast Reports system reviewed and no additional complaints, except as documented Neuro Denies abnormal gait, Denies dizziness, Denies syncope and Reports headache(s) Psych Reports no additional complaints Physical exam (Primary Care) Vital Signs: Last Vital Signs Temp 97.3 F 05/30/25 11:19 Pulse 88 05/30/25 11:19 BP 122/80 05/30/25 11:19 Pulse Ox 97 05/30/25 11:19 Oxygen Delivery Method Room Air 05/30/25 11:19 BMI result Body Mass Index 35.3 Tobacco/Smoking Status: Tobacco use Status Tobacco use date assessed 05/30/25 05/30/25 11:22 Patient Tobacco Use Status Never used Tobacco 05/30/25 11:30 e-Cigarette/Vaping Use Former Use 05/30/25 11:30 PHQ-9: PHQ-9 Score PHQ-9: Total score 27 05/30/25 11:40 Depression Screening Interpretation: Positive (RVCC) Depression Screening Follow-up: Existing condition and In treatment Thrive Assessment: Date of Thrive Assessment Date Thrive assessed 02/08/25 05/30/25 11:22 Currently or been in a relationship where the following occur: I choose not to answer Const General: cooperative, healthy appearing, comfortable and no acute distress Orientation/consciousness: patient oriented x3 HENMT Head: Yes normocephalic Ears: hearing grossly normal bilaterally General nose exam: Normal external nose present Eyes General: appearance normal, both eyes and all related structures Conjunctivae: conjunctivae normal Neck Neck: Yes full ROM and Yes no lymphadenopathy Resp Effort & Inspection: normal respiratory effort Auscultation: clear to auscultation bilaterally, no crackles, no rales, no rhonchi and no wheezes Cardio Rate: regular rate Rhythm: regular rhythm Skin General skin exam: no rashes or lesions noted Neuro General: patient oriented x3 Gait exam (Neuro): Normal gait present Extrem General: Yes normal to inspection, Yes full ROM and No edema Psych Affect: normal affect Attitude: cooperative Insight: Good insight present (Psych) Judgement: Good judgement present (Psych) Coding Level of Care Code New Pt Level 4 (11937) Diagnoses PTSD (post-traumatic stress disorder) F43.10 Anxiety F41.9 Mild episode of recurrent major depressive disorder F33.0 Depression Type: major depressive disorder Major depression recurrence: recurrent Active/Remission status: currently active Major depression episode severity: mild Shortness of breath R06.02 Joint pain M25.50 Additional Codes SYDNIE-7 Assessment Billing - SYDNIE-7 Assessment Tool: SYDNIE-7 Assessment 51676 ([id number]) Assessment & Plan Assessment & Plan (1) PTSD (post-traumatic stress disorder): Comment: [facility] Code(s): F43.10 - Post-traumatic stress disorder, unspecified Category: Medical Plan: Patient is currently following with a counselor in his psychiatrist through [facility]. She is currently on venlafaxine and risperidone and finds this beneficial. She will continue to follow with her med provider for any adjustments going forward. (2) Anxiety: Comment: [facility] counselor weekly and psych every 4 weeks Code(s): F41.9 - Anxiety disorder, unspecified Category: Medical Plan: See above (3) Depression: Code(s): F32.A - Depression, unspecified Category: Medical Qualifiers: Depression Type: major depressive disorder Major depression recurrence: recurrent Active/Remission status: currently active Major depression episode severity: mild Qualified Code(s): F33.0 - Major depressive disorder, recurrent, mild Plan: See above (4) Shortness of breath: Code(s): R06.02 - Shortness of breath Category: Medical Plan: Dyspnea is noted during physical activity and occasionally throughout the night. A pulmonary function test is planned to evaluate for possible asthma. In the meantime patient is given inhaler to trial during times of shortness of breath to see if symptoms improve. Denies any associated symptoms with the shortness of breath including but not limited to chest pain, nausea, vomiting or dizziness. (5) Joint pain: Code(s): M25.50 - Pain in unspecified joint Category: Medical Plan: Patient having generalized joint pain without pattern were consistency. Plan to obtain blood work including autoimmune workup for further evaluation. Plan This note was constructed using voice recognition software. While every effort has been made to ensure accuracy and comb machine operator, still areas may have been included sometimes these areas may affect the content or meeting of the given symptoms. Total time spent caring for the patient today was 30 minutes. This includes time spent before the visit reviewing the chart, time spent during the visit, and time spent after the visit and documentation. Patient was informed and verbally consented to the use of an ambient scribe for clinic note documentation during this visit. Orders: Orders PFT pulmonary function test 05/30/25 R06.02 - Shortness of breath Vitamin B12 and Folate 05/30/25 Z13.21 - Encounter for screening for nutritional disorder Complete Blood Count Auto Diff 05/30/25 R06.02 - Shortness of breath, Z00.00 - Encounter for general adult medical examination without abnormal findings TSH reflex Free T4 05/30/25 Z13.29 - Encounter for screening for other suspected endocrine disorder Vitamin D 25-OH Total 05/30/25 Z13.21 - Encounter for screening for nutritional disorder Comprehensive Met. Panel 05/30/25 R06.02 - Shortness of breath, Z00.00 - Encounter for general adult medical examination without abnormal findings SHELLY Reflex Titer and Pattern 05/30/25 M25.50 - Pain in unspecified joint C Reactive Protein 05/30/25 M25.50 - Pain in unspecified joint Erythrocyte Sedimentation Rate 05/30/25 M25.50 - Pain in unspecified joint Lyme IgG/IgM w/reflex to WB 05/30/25 M25.50 - Pain in unspecified joint Medications: New albuterol sulfate 90 mcg/actuation (Ventolin HFA) 1 inh inhalation QID PRN 8.5 grams 0RF shortness of breath or wheezing Discontinued venlafaxine ER Discontinued Reason: Duplicate 75 mg PO DAILY 30 days 30 caps 0RF
[2025-05-30 11:19] VITALS: BP 122/80; PULSE 88; TEMP 36.3; O2SAT 97; BMI 35.3
--- OUTSIDE RECORDS SUMMARY | 2025-05-30 14:18 | XMS_ITS ---
Author Name [facility] Organization Unknown Care Team Organization Name Specialty Phone Email Start Date End Da te [facility] Termed, PROVIDER Primary Care 09/14/202204/06 [facility] Termed, PROVIDER Primary Care 07/14/202204/06
== END 2025-05-30 12:11 | disposition home or self-care (01) ==
DX: F43.10 Post-traumatic stress disorder, unspecified (principal); F41.9 Anxiety disorder, unspecified; F33.0 Major depressive disorder, recurrent, mild; R06.02 Shortness of breath; M25.50 Pain in unspecified joint

== ENCOUNTER → 2025-05-30 11:10 | Outpatient (BNVA) | payer OTHER, SELFPAY | DX: F33.0 Major depressive disorder, recurrent, mild (principal); F41.9 Anxiety disorder, unspecified; F43.10 Post-traumatic stress disorder, unspecified; R06.02 Shortness of breath; M25.50 Pain in unspecified joint | CPT/HCPCS: 96127 ==

== ENCOUNTER 2025-08-11 10:06 | Outpatient (REF) | payer OTHER, SELFPAY ==
[2025-08-11 10:47] LABS: MANUAL DIFF FLAG NO
[2025-08-11 11:46] LABS: Hematocrit 38.2 % (37.0-47.0); Hemoglobin 13.1 g/dl (12.0-16.0); Imm Gran Abs Auto 0.01 X10*3/uL (0.00-0.03); Imm Gran Pct Auto 0.2 % (0.0-0.4); Lymphocytes Absolute Auto 1.6 X10*3/uL (1.2-4.9); Mean Corpuscular HGB Conc 34.3 g/dl (31.0-35.0); Mean Corpuscular Hemoglobin 30.5 pg (27.0-33.0); Mean Corpuscular Volume 89.0 fL (80.0-98.0); NRBC Abs Auto 0.000 X10*3/uL (0.0-0.012); NRBC Pct Auto 0.0 /100WBC (0.0-0.2); Platelet Count 210 X10*3/uL (160-400); Red Blood Count 4.29 X10*6/uL (4.20-5.50); White Blood Count 6.0 X10*3/uL (4.8-10.8)
[2025-08-11 12:27] LABS: Erythrocyte Sedimentation Rate 36 MM/HR (0-20)
[2025-08-11 12:28] LABS: Alanine Aminotransferase 34 U/L (0-31); Albumin Level 5.0 g/dL (3.5-5.0); Alkaline Phosphatase 112 U/L (39-117); Anion Gap 12 (12-20); Aspartate Amino Transferase 23 U/L (5-31); Blood Urea Nitrogen 8 mg/dL (9-16); Calcium 10.1 mg/dL (8.4-10.2); Carbon Dioxide 29 mmol/L (22-29); Chloride 106 mmol/L (96-108); Estimated Glomerular Filt Rate > 60; Potassium 4.5 mmol/L (3.3-5.1); Sodium 142 mmol/L (135-145); Total Protein 8.5 g/dL (6.5-8.0)
[2025-08-11 13:20] LABS: Folate 10.6 ng/mL (> or = 4.0); Vitamin B12 323 pg/mL (200-900)
[2025-08-13 21:23] LABS: Lyme Abs Screen <0.90 index
[2025-08-14 12:57] LABS: Anti Nuclear Antibody Screen NEGATIVE (NEGATIVE)
== END 2025-08-11 10:07 | disposition home or self-care (01) ==
LOC: HO.LAB 10:06
DX: Z00.00 Encounter for general adult medical examination without abnormal findings (principal); Z01.84 Encounter for antibody response examination; M25.50 Pain in unspecified joint; R06.02 Shortness of breath; Z13.21 Encounter for screening for nutritional disorder; Z13.29 Encounter for screening for other suspected endocrine disorder
CPT/HCPCS: 36415; 80053; 82306; 82607; 82746; 84443; 85025; 85652; 86038; 86140; 86617; 86618

== ENCOUNTER 2025-08-14 11:00 | Outpatient (REF) | payer OTHER, SELFPAY ==
--- NOTE | 2025-08-14 11:04 | PFT_ITS ---
Spirometry [] Lung Volumes [] Diffusion Capacity [] Methacholine Challenge [] Flow Volume Loops [] MVV [] MIP/MEP(Max inspiratory pressure/Max expiratory pressure) [] 6 Minute Walk Test [] ABG [] Interpretation [] MTDD
[2025-08-14 11:44] VITALS: PULSE 87
== END 2025-08-14 11:01 | disposition home or self-care (01) ==
LOC: HO.RESP 11:00
DX: R06.02 Shortness of breath (principal); R06.00 Dyspnea, unspecified
CPT/HCPCS: 94060; 94640; 94727; 94729

== ENCOUNTER → 2025-08-14 11:04 | Outpatient (BNV) | payer OTHER, SELFPAY | PROVIDERS: Visit Provider Internal Medicine Pulmonary Disease | DX: R06.02 Shortness of breath (principal) | CPT/HCPCS: 94060; 94727; 94729 ==

== ENCOUNTER 2025-08-24 11:01 | Outpatient (AMB) | payer OTHER, SELFPAY ==
--- NOTE | 2025-08-24 11:20 | A.OFFPC_ITS ---
Vital Signs 08/24/25 11:22 Height 5 ft 2.6 in Weight 199 lb BMI 35.7 BP 104/72 Blood Pressure Location Lt brachial Position Sitting Respiration 16 Pulse 88 Pulse Source Pulse Oximeter Temp 97.2 F Temp Source Temporal Artery Scan Pulse Oximetry (%) 97 Oxygen Delivery Method Room Air Intake Visit Reasons: annual exam Instrumentation Engineer Required: No Accompanied by: Self / Same As Patient Allergies No Known Allergies Allergy (Verified 08/24/25 11:21) Tobacco use date assessed: 05/30/25 Dental Screening Dental Screen Date: 05/30/25 HPI HPI Comments History of Present Illness Details Patient is a 20-year-old female with history of anxiety and depression presenting for annual physical. Patient would like to be screened for STDs. She was lastly sexually active 2-3 years ago. She had 2 partners back then. Currently not sexually active. Discussed recent blood work with patient, showed slightly elevated ALT of 34, low vitamin-D, slightly elevated ESR of 36 but negative CRP. Negative SHELLY, Lyme IgG and IgM. Blood work from February 2025 showed elevated triglycerides, elevated total cholesterol and LDL. Regarding Healthcare maintenance - declines flu and Tdap vaccines today - states that she had Pap smear done las t year but not sure where, possibly at [facility]? [facility] Medical History Psychosis Surgical History No pertinent past surgical history Social History Household Members: Family Household Members Other:: mother, father, sister Housing: House Do you presently have visiting nurse or other home services: No Alcohol intake: current Alcohol intake frequency: holidays/special occasions only Patient Tobacco Use Status: Never used Tobacco e-Cigarette/Vaping Use: Former Use Second Hand Smoke Exposure: No service: No Current occupational status: unemployed Sexual orientation: Straight/Heterosexual Cognitive needs: No Hearing needs: No Vision needs: No Questionnaire Thrive Questionnaire Date Thrive assessed: 05/30/25 I am a: Patient What is your living situation today?: I have a steady place to live Within the past 12 months, did the food you bought not last and you didn't have the money to get more?: Never true Within the past 12 months, did you worry whether your food would run out before you got money to buy more?: I choose not to answer this question Do you have trouble paying for medicines?: No Do you have trouble getting transportation to medical appointments?: No Do you have trouble paying your heating and electricity bill?: No Do you have trouble taking care of your child, family member or friend?: No Do you have trouble with day-to-day activities such as bathing, preparing meals, shopping, managing finances, etc.?: Yes Are you currently unemployed and looking for a job?: Yes Are you interested in more education?: Yes Currently or been in a relationship where the following occur: I choose not to answer THRIVE Score: 0 SYDNIE-7 AMB Questionnaire SYDNIE-7 Date SYDNIE - 7 assessed: 05/30/25 Source: Developed by Drs. Brad Ghotra, Anju Briceño, Bj Fontana and colleagues, with an educational andrzej from [employer]. Physical exam (Primary Care) Vital Signs: Last Vital Signs Temp 97.2 F 08/24/25 11:22 Pulse 88 08/24/25 11:22 Resp 16 08/24/25 11:22 BP 104/72 08/24/25 11:22 Pulse Ox 97 08/24/25 11:22 Oxygen Delivery Method Room Air 08/24/25 11:22 General: Well-appearing, alert, oriented ?3, in no acute distress. HEENT: Normocephalic, atraumatic, PERRLA, EOMI, no scleral icterus. External ears normal, tympanic membranes intact bilaterally, no erythema or effusion. Nares patent, normal mucosa pink, no discharge. No oral lesions, or pharyngeal erythema. Neck Supple. Cardiovascular: RRR, S1-S2 appreciated, no murmurs, rubs or gallops. Respiratory: Lungs clear to auscultation bilaterally, no wheezes, rales or rhonchi. Abdomen: Soft, nontender, nondistended. Normoactive bowel sounds. MSK: Normal range of motion in all extremities, no joint swelling or deformity. Skin: Intact, no rashes or lesions Neurologic: Alert and oriented X3, cranial nerves II?XII grossly intact, sensat ion and strength intact in bilateral lower and upper extremities. BMI result Body Mass Index 35.7 Tobacco/Smoking Status: Tobacco use Status Tobacco use date assessed 05/30/25 08/24/25 11:20 Patient Tobacco Use Status Never used Tobacco 08/24/25 11:20 e-Cigarette/Vaping Use Former Use 08/24/25 11:20 Thrive Assessment: Date of Thrive Assessment Date Thrive assessed 05/30/25 08/24/25 11:20 Currently or been in a relationship where the following occur: I choose not to answer Coding Level of Care Code Est Pt Prev Care 18-39y([id number]) Diagnoses Annual physical exam Z00.00 Hyperlipidemia, unspecified hyperlipidemia type E78.5 Hyperlipidemia type: unspecified Screening for STD (sexually transmitted disease) Z11.3 Assessment & Plan Assessment & Plan (1) Annual physical exam: Code(s): Z00.00 - Encounter for general adult medical examination without abnormal findings Plan: - declines flu and Tdap vaccines today - states that she had Pap smear done last year but not sure where, possibly at [facility]? (2) Hyperlipidemia: Code(s): E78.5 - Hyperlipidemia, unspecified Category: Medical Qualifiers: Hyperlipidemia type: unspecified Qualified Code(s): E78.5 - Hyperlipidemia, unspecified Plan: Patient was elevated the lipid panel in February 2025 with mildly elevated LFTs most recent blood work.. Educated about dietary modifications and exercise. Follow up in 3 months with her PCP for re-evaluation. (3) Screening for STD (sexually transmitted disease): Code(s): Z11.3 - Encounter for screening for infections with a predominantly sexual mode of transmission Plan: Test for HIV, hepatitis-C, syphilis, chlamydia and Neisseria gonorrhea urine test. Orders: Orders HIV Ab/Ag Today Z11.3 - Encounter for screening for infections with a predominantly sexual mode of transmission RPR Monitor reflex titer Today Z11.3 - Encounter for screening for infections with a predominantly sexual mode of transmission Hepatitis C Antibody Reflex Today Z11.3 - Encounter for screening for infections with a predominantly sexual mode of transmission CT NG by PCR Urine Today Z11.3 - Encounter for screening for infections with a predominantly sexual mode of transmission
[2025-08-24 11:22] VITALS: BP 104/72; PULSE 88; RESP 16; TEMP 36.2; O2SAT 97; BMI 35.7
== END 2025-08-24 11:55 | disposition home or self-care (01) ==
LOC: HO.HMCH 11:02
PROVIDERS: Visit Provider Student in an Organized Health Care Education/Training Program
DX: Z00.00 Encounter for general adult medical examination without abnormal findings (principal); E78.5 Hyperlipidemia, unspecified; Z11.3 Encounter for screening for infections with a predominantly sexual mode of transmission